=== PATIENT | male | born 1955 | race Caucasian/White ===

== ENCOUNTER → 2016-07-27 19:01 | Outpatient (CLI) | payer OTHER ==
[2012-12-14 13:45] VITALS: BMI 30.1
[~2016-07-27 19:01] MED LIST: BACTRIM DS TABL1 TAB PO; GLIPIZIDE10 MG PO; GLUCOPHAGE500 MG PO; LEVAQUIN750 MG PO; NORCO 10/325 TA1 TA1 PO; ZESTRIL20 MG PO
== END | disposition home or self-care (01) ==
LOC: D.LAB 19:01
DX: Z11.59 Encounter for screening for other viral diseases (principal)

== ENCOUNTER 2017-06-22 18:31 | Emergency (ER) | payer OTHER ==
[2017-06-20 08:40] VITALS: BMI 31.7
[~2017-06-22 18:31] MED LIST changes: +INVOKANA100 MG PO; +LIPITOR20 MG PO; +ONGLYZA5 MG PO; +SYNTHROID25 MCG PO
[2017-06-22 19:22] LABS: BASOPHILS 0.4 % (0-2); EOSINOPHILS 1.9 % (0-7); HEMATOCRIT 49.5 % (42.0-54.0); HEMOGLOBIN 17.9 g/dL (13.5-17.5); IMMATURE GRANULOCYTES 0.9 % (0-5); LYMPHOCYTES 30.9 % (15-50); MCH 31.6 pg (26.0-34.0); MCHC 36.2 g/dL (31.0-37.0); MCV 87.5 fL (80.0-100.0); MEAN PLATELET VOLUME 9.2 fL (7.4-10.4); MONOCYTES 8.3 % (2-11); NEUTROPHILS 57.6 % (40-80); RBC 5.66 10x6/uL (4.20-6.10); RDW 13.5 % (11.5-14.5); WBC 8.9 10x3/uL (4.8-10.8)
[2017-06-22 19:28] LABS: PLATELET COUNT 162 10x3/uL (130-400)
[2017-06-22 19:39] LABS: ALBUMIN 4.5 g/dL (3.4-5.0); ALKALINE PHOSPHATASE 81 U/L (46-116); ALT (SGPT) 47 U/L (10-68); AMYLASE - SERUM 51 U/L (25-115); CALC OSMOLALITY 279 mosm/kg (275-300); CALCIUM 9.9 mg/dL (8.5-10.1); CARBON DIOXIDE 26.4 mmol/L (21.0-32.0); CHLORIDE - SERUM 99 mmol/L (98-107); LIPASE 211 U/L (73-393); POTASSIUM - SERUM 4.4 mmol/L (3.5-5.1); PROTEIN - SERUM 7.8 g/dL (6.4-8.2); SODIUM 136 mmol/L (136-145); UREA NITROGEN 23 mg/dL (7-18); eGFR NON AFRICAN AMERICAN 81 mL/min (90-120)
[2017-06-22 19:42] LABS: GLUCOSE 162 mg/dL (74-106)
[2017-06-22 20:09] LABS: APPEARANCE CLEAR (CLEAR); BILIRUBIN NEGATIVE (NEGATIVE); COLOR YELLOW (YELLOW); GLUCOSE 500 mg/dL (NEGATIVE); KETONE NEGATIVE (NEGATIVE); NITRITE NEGATIVE (NEGATIVE); PROTEIN NEGATIVE (NEGATIVE); SPECIFIC GRAVITY 1.015 (1.005-1.020); UROBILINOGEN NORMAL (NORMAL)
== END 2017-06-22 21:23 | disposition home or self-care (01) ==
LOC: D.ER 18:31
PROVIDERS: Emergency Medicine
DX: R10.13 Epigastric pain (principal); R10.12 Left upper quadrant pain; I10 Essential (primary) hypertension; I50.9 Heart failure, unspecified; I44.4 Left anterior fascicular block